=== PATIENT | female | born 1950 | race Caucasian/White ===

== ENCOUNTER 2020-09-02 16:38 | Emergency (ER) | payer OTHER, MEDICARE ==
[~2020-09-02] VITALS: Ht 157.5 cm; Wt 77.1 kg
[~2020-09-02 16:38] MED LIST: ALBU90OI INH; ALBU90OI61 INH; ASPI325 PO; ATEN50 PO; ATOR10 PO; BACL10 PO; CETI5 PO; CLOB.05TC TOP; CLON1 PO; CYAN1000I IM; DULOXETINE HCL30 MG PO; ENOX40I SC; FLUO.05TO TOP; FOLI1 PO; GLIP5 PO; Gengraf25 MG PO; HYDACE10B PO; HYDCHL12.5 PO; HYDCHL25 PO; HYDR1TAB94 PO; INS70/30PN SC; INSUASPI SC; INSULANPEN SC; LEVSOD175 PO; LISHYD2012 PO; LISI5 PO; LORA1; Lantus100 UNIT/1 SC; METF500C; METF850 PO; METTREX2.5 PO; MORP15ER PO; NAPR250 PO; ONDA4ODT SL; OXYACE5T PO; OXYC5 PO; PARO20; PARO30; PARO30 PO; QUET200; SIMV10 PO; SUMA25 PO; Synthroid125 MCG PO; TACR1 TOP; TRIA80TC TOP
[2020-09-02] MEDS ORDERED: HYDR1TAB94 PO (18:24)
[2020-09-02] MEDS ORDERED: Voltaren100 GM TOP (18:24)
== END 2020-09-02 18:58 | disposition home or self-care (01) ==
LOC: ER 16:38
DX: M25.511 Pain in right shoulder (principal); I10 Essential (primary) hypertension; J44.9 Chronic obstructive pulmonary disease, unspecified; F17.210 Nicotine dependence, cigarettes, uncomplicated; Z79.4 Long term (current) use of insulin; Z79.899 Other long term (current) drug therapy; Z88.8 Allergy status to other drugs, medicaments and biological substances
CPT/HCPCS: 73030; 99283-25; A9270

== ENCOUNTER 2021-12-10 21:24 | Inpatient (IN) | payer OTHER ==
[~2021-12-10] VITALS: Ht 157.5 cm; Wt 85.0 kg
[~2021-12-10 21:24] MED LIST changes: +Voltaren100 GM TOP
[2021-12-10 22:26] LABS: BASOPHILS ABSOLUTE AUTO 0.04 K/mm3 (0.00-0.23); BASOPHILS PERCENT AUTO 0 % (0-2); EOSINOPHILS ABSOLUTE AUTO 0.04 K/mm3 (0.00-0.68); EOSINOPHILS PERCENT AUTO 0 % (0-6); Hematocrit 39.7 % (33.0-51.0); Hemoglobin 13.6 g/dL (11.5-16.0); IMMATURE GRAN PERCENT AUTO 1 % (0-1); LYMPHOCYTES ABSOLUTE AUTO 1.23 K/mm3 (0.84-5.20); LYMPHOCYTES PERCENT AUTO 8 % (21-46); MONOCYTES ABSOLUTE AUTO 1.11 K/mm3 (0.16-1.47); MONOCYTES PERCENT AUTO 7 % (4-13); Mean Corpuscular HGB 31.3 pg (26.0-34.0); Mean Corpuscular HGB Conc 34.3 g/dL (31.5-36.5); Mean Corpuscular Volume 92 fL (80-100); Mean Platelet Volume 9.8 fL (9.1-12.4); NEUTROPHILS ABSOLUTE AUTO 12.95 K/mm3 (1.96-9.15); NEUTROPHILS PERCENT AUTO 84 % (41-73); Platelet Count 146 K/mm3 (150-400); RDW Coefficient Variation 12.2 % (11.7-14.2); RDW Standard Deviation 41.4 fL (35.1-46.3); Red Blood Cell Count 4.34 M/mm3 (3.80-5.20); White Blood Cell Count 15.47 K/mm3 (4.00-11.30)
[2021-12-10 22:34] LABS: Source, Urine Voided
[2021-12-10 22:37] LABS: Appearance, Urine Cloudy (Clear); Bilirubin, Urine Neg (Neg); Blood, Urine 4+ (Neg); Glucose Qualitative, Urine 4+ (Neg); Ketones, Urine 1+ (Neg); Leukocyte Esterase, Urine 2+ (Neg); Nitrite, Urine Neg (Neg); Protein, Urine 3+ (Neg); Urobilinogen, Urine NORM (Normal); pH, Urine 6.5 (5.0-8.0)
[2021-12-10 22:44] LABS: Color, Urine Pale Yellow (P-Yellow)
[2021-12-10 22:45] LABS: Albumin/Globulin Ratio 0.5 (0.8-1.8); Creatinine, Blood 1.04 mg/dL (0.40-1.00); Globulin, Blood 4.4 g/dL (2.2-4.0); Potassium, Blood 4.1 mmol/L (3.5-5.5); Total Protein, Blood 6.4 g/dL (6.4-8.2)
[2021-12-10 22:47] LABS: Bacteria Many /hpf; Squamous Epithelial Cells Many /hpf (Few); White Blood Cells, Urine 25-50 /hpf (0-5); Yeast/Fungi Urine Rare /hpf
[2021-12-11 05:54] LABS: BASOPHILS ABSOLUTE AUTO 0.03 K/mm3 (0.00-0.23); BASOPHILS PERCENT AUTO 0 % (0-2); EOSINOPHILS ABSOLUTE AUTO 0.01 K/mm3 (0.00-0.68); EOSINOPHILS PERCENT AUTO 0 % (0-6); Hematocrit 36.8 % (33.0-51.0); Hemoglobin 12.6 g/dL (11.5-16.0); IMMATURE GRAN ABSOLUTE AUTO 0.04 K/mm3 (0.00-0.10); IMMATURE GRAN PERCENT AUTO 0 % (0-1); LYMPHOCYTES ABSOLUTE AUTO 0.71 K/mm3 (0.84-5.20); LYMPHOCYTES PERCENT AUTO 6 % (21-46); MONOCYTES ABSOLUTE AUTO 0.87 K/mm3 (0.16-1.47); MONOCYTES PERCENT AUTO 8 % (4-13); Mean Corpuscular HGB 31.7 pg (26.0-34.0); Mean Corpuscular HGB Conc 34.2 g/dL (31.5-36.5); Mean Corpuscular Volume 93 fL (80-100); Mean Platelet Volume 9.9 fL (9.1-12.4); NEUTROPHILS ABSOLUTE AUTO 9.71 K/mm3 (1.96-9.15); NEUTROPHILS PERCENT AUTO 85 % (41-73); Platelet Count 127 K/mm3 (150-400); RDW Coefficient Variation 12.4 % (11.7-14.2); RDW Standard Deviation 42.5 fL (35.1-46.3); Red Blood Cell Count 3.97 M/mm3 (3.80-5.20); White Blood Cell Count 11.37 K/mm3 (4.00-11.30)
[2021-12-11 06:15] LABS: Albumin, Blood 1.7 g/dL (3.4-5.0); Albumin/Globulin Ratio 0.4 (0.8-1.8); Bilirubin, Total 0.6 mg/dL (0.1-1.0); Bun/Creatinine Ratio 27.6 (12.0-20.0); Creatinine, Blood 1.05 mg/dL (0.40-1.00); Globulin, Blood 3.8 g/dL (2.2-4.0); Total Protein, Blood 5.5 g/dL (6.4-8.2)
[2021-12-11 09:17] LABS: Glucose, Blood 660 mg/dL (70-99)
[2021-12-11 12:19] LABS: Glucose, Blood 519 mg/dL (70-99)
--- NOTE | 2021-12-11 17:25 | NUR ---
SHIFT SUMMARY PATIENT IS ALERT AND ORIENTED X4. PATIENT IS IND IN ROOM. PATIENT WAS ON 2L OXYGEN WHEN ARRIVAL FROM ED. PATIENT IS ON ROOM AIR NOW SATTING 96 PERCENT. PATIENT HAS HAD NO ACUTE EVENTS THIS SHIFT. VITAL SIGNS REVIEWED. BED IN LOCKED AND LOWEST POSITION. CALL LIGHT IN PLACE. WILL MONITOR UNTIL SHIFT CHANGE.
[2021-12-11 18:11] LABS: Hematocrit 40.4 % (33.0-51.0); Hemoglobin 13.7 g/dL (11.5-16.0); Mean Corpuscular HGB 31.5 pg (26.0-34.0); Mean Corpuscular HGB Conc 33.9 g/dL (31.5-36.5); Mean Corpuscular Volume 93 fL (80-100); Platelet Count 121 K/mm3 (150-400); RDW Coefficient Variation 12.4 % (11.7-14.2); RDW Standard Deviation 42.7 fL (35.1-46.3); Red Blood Cell Count 4.35 M/mm3 (3.80-5.20); White Blood Cell Count 10.82 K/mm3 (4.00-11.30)
--- NOTE | 2021-12-11 19:22 | NUR ---
RECEIVED BEDSIDE REPORT. A/O. ON RA. RESP EVEN. DAYSHIFT RN BROUGHT PT A WARM BLANKET. ER ADMIT TODAY. WILL CONTINUE TO PROVIDE CARE T/O SHIFT. CALL LT IN REACH.
--- NOTE | 2021-12-11 21:11 | NUR ---
FWW GIVEN TO PT AFTER NOTICING PT WAS WOBBLY DURING AMBULATION. PT STATES SHE JUST WOKE UP. AFTER USING THE BATHROOM, PT USED WALKER TO BED. CALL LT IN REACH.
--- NOTE | 2021-12-11 23:05 | NUR ---
MEDICATED PT FOR ALL OVER BODY PAIN. WILL REEVALUATE. BSC PLACED NEAR PT FOR EASE OF GETTING UP FREQUENTLY TO USE THE BATHROOM. TISSUES AND HAND VISCOSITY WORKER GIVEN TO PT. CALL LT IN REACH.
--- NOTE | 2021-12-11 23:48 | NUR ---
PT STATES FULL RELIEF OF PAIN IN HER HEAD, NECK, AND LOWER BACK. NO OTHER NEEDS. CALL LT IN REACH.
--- NOTE | 2021-12-12 02:00 | NUR ---
PT RESTING QUIETLY. CALL LT IN REACH.
[2021-12-12 05:14] LABS: Albumin, Blood 1.6 g/dL (3.4-5.0); Anion Gap 9 mmol/L (6-16); Blood Urea Nitrogen 23 mg/dL (8-24); Bun/Creatinine Ratio 27.3 (12.0-20.0); CO2, Blood 23 mmol/L (21-32); Calcium, Blood 7.3 mg/dL (8.5-10.1); Chloride, Blood 104 mmol/L (98-108); Creatinine, Blood 0.84 mg/dL (0.40-1.00); Glomerular Filtration Rate 75 (60-); Glucose, Blood 263 mg/dL (70-99); Phosphorus, Blood 2.1 mg/dL (2.5-4.9); Potassium, Blood 3.9 mmol/L (3.5-5.5); Sodium, Blood 136 mmol/L (136-145)
--- NOTE | 2021-12-12 05:41 | NUR ---
SHIFT SUMMARY: A/O. INDEP WITH WALKER TO BR. SEVERAL UNMEASURED VOIDS DURING SHIFT. ON RA. NSR AT 86 ON TELE. NO COMPLAINTS OF NAUSEA. MEDICATED WITH TYLENOL FOR HEADACHE AND GENERALIZED PAIN WITH NO RESULTS. 5MG OXYCODONE GIVEN AND PT REPORTED THIS IS THE FIRST TIME IN A WHILE SHE'S PAIN FREE. PT RESTED WELL AFTERWARDS. BLOOD SUGAR 286, 1 UNIT SHORT ACTING INSULIN GIVEN. NO ACUTE CHANGES. WILL CONTINUE TO PROVIDE CARE UNTIL SHIFT REPORT.
--- NOTE | 2021-12-12 16:46 | NUR ---
SHIFT SUMMARY PATIENT IS ALERT AND ORIENTED X4. PATIENT HAS HAD NO ACUTE EVENTS THIS SHIFT. TELE WAS REMOVED. VITAL SIGNS REVIEWED. PATIENT HAS BEEN MEDICATED FOR PAIN TWICE THIS SHIFT. PATIENT IS IND IN ROOM. PATIENT HAS NOT COMPLAINED OF NAUSEA, SOB OR VOMITTING THIS SHIFT. BED IN LOCKED AND LOWEST POSITION. CALL LIGHT IN PLACE. WILL MONITOR UNTIL SHIFT CHANGE.
--- NOTE | 2021-12-13 04:27 | NUR ---
SHIFT SUMMARY: PT IS A/OX4. SHE USES THE CALL BUTTON FOR NEEDS. PT BELIEVES SHE IS PASSING KIDNEY STONES. URINE WAS EVALUATED AND SOME SEDIMENT WAS NOTED. PATIENT DID TAKE A SHOWER THIS NOC SHIFT. SHE IS INDEPENDENT IN THE ROOM. WE'LL CONTINUE TO MONITOR.
[2021-12-13] MEDS ORDERED: CEPH500 PO (13:03)
[2021-12-13] MEDS ORDERED: ALBU90OI INH (13:06)
[2021-12-13] MEDS ORDERED: VISBIOME 112.51 EACH PO (13:16)
[2021-12-13] MEDS ORDERED: OXYC5 PO (13:18)
--- NOTE | 2021-12-13 15:22 | NUR ---
SHIFT SUMMARY PATIENT IS ALERT AND ORIENTED X4. PATIENT HAS BEEN IND IN ROOM. IV REMOVED WNL. PATIENT HAS HAD NO ACUTE EVENTS THIS SHIFT. VITAL SIGNS REVIEWED. PATIENT HAS NOT COMPLAINED OF ANY SOB, NAUSEA, VOMITTING OR SOB THIS SHIFT. PATIENT WAS READ DISCHARGE INSTRUCTIONS. PATIENTS MEDICATIONS WERE FAXED TO [facility]. PATIENT WAS DISCHARGED HOME BY SON.
== END 2021-12-13 15:43 | disposition home or self-care (01) | DRG 872 ==
LOC: ER 21:24 → MEDS 23:49 → ERHOLD 23:49 → MEDS 12-11 11:15
PROVIDERS: Internal Medicine; Student in an Organized Health Care Education/Training Program; ADMIT Internal Medicine
DX: A41.51 Sepsis due to Escherichia coli [E. coli] (principal); N39.0 Urinary tract infection, site not specified; G89.29 Other chronic pain; N18.2 Chronic kidney disease, stage 2 (mild); E11.65 Type 2 diabetes mellitus with hyperglycemia; I12.9 Hypertensive chronic kidney disease with stage 1 through stage 4 chronic kidney disease, or unspecified chronic kidney disease; F17.210 Nicotine dependence, cigarettes, uncomplicated; E11.42 Type 2 diabetes mellitus with diabetic polyneuropathy; L40.9 Psoriasis, unspecified; F43.10 Post-traumatic stress disorder, unspecified; Z98.890 Other specified postprocedural states; Z88.8 Allergy status to other drugs, medicaments and biological substances; Z79.4 Long term (current) use of insulin; Z79.899 Other long term (current) drug therapy
CPT/HCPCS: 36415; 71045; 74176; 80053; 80069; 81001; 82947; 83605; 83690; 85025; 85027; 87040; 87077; 87186; 93005; 93010; 94640; 94664; 94760; 96372; 96374; 96375; 99285-25; A9270; J0456; J0696; J1650; J1815; J1885; J7030; J7050

== ENCOUNTER 2022-07-30 11:58 | Emergency (ER) | payer OTHER ==
[~2022-07-30] VITALS: Ht 157.5 cm; Wt 83.9 kg
[~2022-07-30 11:58] MED LIST changes: +CEPH500 PO; +METF500 PO; +VISBIOME 112.51 EACH PO
[2022-07-30 12:32] LABS: BASOPHILS ABSOLUTE AUTO 0.05 K/mm3 (0.00-0.23); BASOPHILS PERCENT AUTO 1 % (0-2); EOSINOPHILS ABSOLUTE AUTO 0.17 K/mm3 (0.00-0.68); EOSINOPHILS PERCENT AUTO 2 % (0-6); Hemoglobin 16.4 g/dL (11.5-16.0); IMMATURE GRAN ABSOLUTE AUTO 0.04 K/mm3 (0.00-0.10); IMMATURE GRAN PERCENT AUTO 0 % (0-1); LYMPHOCYTES ABSOLUTE AUTO 3.81 K/mm3 (0.84-5.20); LYMPHOCYTES PERCENT AUTO 37 % (21-46); MONOCYTES ABSOLUTE AUTO 0.51 K/mm3 (0.16-1.47); MONOCYTES PERCENT AUTO 5 % (4-13); Mean Corpuscular HGB 31.2 pg (26.0-34.0); Mean Corpuscular HGB Conc 34.2 g/dL (31.5-36.5); Mean Corpuscular Volume 91 fL (80-100); Mean Platelet Volume 9.7 fL (9.1-12.4); NEUTROPHILS ABSOLUTE AUTO 5.63 K/mm3 (1.96-9.15); NEUTROPHILS PERCENT AUTO 55 % (41-73); Platelet Count 210 K/mm3 (150-400); RDW Coefficient Variation 12.9 % (11.7-14.2); RDW Standard Deviation 43.3 fL (35.1-46.3); Red Blood Cell Count 5.26 M/mm3 (3.80-5.20); White Blood Cell Count 10.21 K/mm3 (4.00-11.30)
[2022-07-30 12:47] LABS: Albumin, Blood 3.4 g/dL (3.4-5.0); Albumin/Globulin Ratio 0.9 (0.8-1.8); Bilirubin, Total 0.5 mg/dL (0.1-1.0); Bun/Creatinine Ratio 22.7 (12.0-20.0); Creatinine, Blood 0.79 mg/dL (0.40-1.00); Globulin, Blood 3.6 g/dL (2.2-4.0); Potassium, Blood 3.4 mmol/L (3.5-5.5)
== END 2022-07-30 15:36 | disposition left against medical advice (07) ==
LOC: ER 11:58
PROVIDERS: Student in an Organized Health Care Education/Training Program
DX: R10.32 Left lower quadrant pain (principal); Z88.1 Allergy status to other antibiotic agents; Z91.048 Other nonmedicinal substance allergy status; Z79.899 Other long term (current) drug therapy; Z79.84 Long term (current) use of oral hypoglycemic drugs; Z79.4 Long term (current) use of insulin; F43.10 Post-traumatic stress disorder, unspecified; E11.42 Type 2 diabetes mellitus with diabetic polyneuropathy; I10 Essential (primary) hypertension; F17.210 Nicotine dependence, cigarettes, uncomplicated
CPT/HCPCS: 36415; 80053; 83690; 85025

== ENCOUNTER 2024-12-05 11:48 | Emergency (ER) | payer OTHER ==
[~2024-12-05] VITALS: Ht 157.5 cm; Wt 74.0 kg
[~2024-12-05 11:48] MED LIST changes: +CELE100 PO; +INSULANI SC; +JARDIANCE25 MG PO; +LEVSOD150 PO; +MELO7.5 PO; +NOVOLIN R100 UNIT/2; +STIOLTO RESPIMAT4 G1 INH
[2024-12-05 11:51] VITALS: BP 128/69
[2024-12-05 12:12] LABS: BASOPHILS ABSOLUTE AUTO 0.05 K/mm3 (0.00-0.23); BASOPHILS PERCENT AUTO 0 % (0-2); EOSINOPHILS ABSOLUTE AUTO 0.22 K/mm3 (0.00-0.68); EOSINOPHILS PERCENT AUTO 2 % (0-6); Hematocrit 49.6 % (33.0-51.0); Hemoglobin 16.9 g/dL (11.5-16.0); IMMATURE GRAN ABSOLUTE AUTO 0.05 K/mm3 (0.00-0.10); IMMATURE GRAN PERCENT AUTO 0 % (0-1); LYMPHOCYTES ABSOLUTE AUTO 1.88 K/mm3 (0.84-5.20); LYMPHOCYTES PERCENT AUTO 13 % (21-46); MONOCYTES ABSOLUTE AUTO 1.20 K/mm3 (0.16-1.47); MONOCYTES PERCENT AUTO 9 % (4-13); Mean Corpuscular HGB Conc 34.1 g/dL (31.5-36.5); Mean Corpuscular Volume 91 fL (80-100); NEUTROPHILS ABSOLUTE AUTO 10.70 K/mm3 (1.96-9.15); NEUTROPHILS PERCENT AUTO 76 % (41-73); NRBC ABSOLUTE 0.00 K/mm3 (0.00-0.02); NRBC Auto 0.0 /100 WBC (0.0-0.2); Platelet Count 219 K/mm3 (150-400); RDW Coefficient Variation 12.6 % (11.7-14.2); RDW Standard Deviation 42.1 fL (35.1-46.3)
[2024-12-05 13:21] LABS: Alanine Aminotransfer (ALT/SGP 14.0 U/L (12-78); Albumin, Blood 3.2 g/dL (3.4-5.0); Albumin/Globulin Ratio 0.8 (0.8-1.8); Anion Gap 7.0 mmol/L (3-11); Aspartate Aminotrans (AST/SGOT 7.0 U/L (12-37); Bilirubin, Total 1.4 mg/dL (0.1-1.0); Blood Urea Nitrogen 13.0 mg/dL (8-24); CO2, Blood 32.0 mmol/L (21-32); Calcium, Blood 8.9 mg/dL (8.5-10.1); Chloride, Blood 103.0 mmol/L (98-108); Creatinine, Blood 0.89 mg/dL (0.40-1.00); Globulin, Blood 3.9 g/dL (2.2-4.0); Glucose, Blood 153.0 mg/dL (70-99); Potassium, Blood 3.3 mmol/L (3.5-5.5); Sodium, Blood 139.0 mmol/L (136-145); Total Protein, Blood 7.1 g/dL (6.4-8.2)
== END 2024-12-05 13:43 | disposition left against medical advice (07) ==
LOC: ER 11:48
PROVIDERS: Physician Assistant
DX: K61.1 Rectal abscess (principal); Z53.21 Procedure and treatment not carried out due to patient leaving prior to being seen by health care provider
CPT/HCPCS: 80053; 85025; 99283

== ENCOUNTER 2024-12-06 08:13 | Inpatient (IN) | payer OTHER ==
[~2024-12-06] VITALS: Ht 157.5 cm; Wt 79.6 kg
[2024-12-06] MEDS ORDERED: Ketorolac Tromethamine 15mg Vial IV ONE (09:00)
[2024-12-06 09:36] LABS: BASOPHILS ABSOLUTE AUTO 0.07 K/mm3 (0.00-0.23); BASOPHILS PERCENT AUTO 1 % (0-2); EOSINOPHILS ABSOLUTE AUTO 0.24 K/mm3 (0.00-0.68); EOSINOPHILS PERCENT AUTO 2 % (0-6); Hematocrit 50.2 % (33.0-51.0); Hemoglobin 17.2 g/dL (11.5-16.0); IMMATURE GRAN ABSOLUTE AUTO 0.04 K/mm3 (0.00-0.10); IMMATURE GRAN PERCENT AUTO 0 % (0-1); LYMPHOCYTES ABSOLUTE AUTO 1.76 K/mm3 (0.84-5.20); LYMPHOCYTES PERCENT AUTO 13 % (21-46); MONOCYTES ABSOLUTE AUTO 0.90 K/mm3 (0.16-1.47); MONOCYTES PERCENT AUTO 7 % (4-13); Mean Corpuscular HGB Conc 34.3 g/dL (31.5-36.5); Mean Corpuscular Volume 91 fL (80-100); NEUTROPHILS ABSOLUTE AUTO 10.71 K/mm3 (1.96-9.15); NEUTROPHILS PERCENT AUTO 78 % (41-73); NRBC ABSOLUTE 0.00 K/mm3 (0.00-0.02); NRBC Auto 0.0 /100 WBC (0.0-0.2); Platelet Count 247 K/mm3 (150-400); RDW Coefficient Variation 12.7 % (11.7-14.2); RDW Standard Deviation 42.3 fL (35.1-46.3)
[2024-12-06 09:59] LABS: Alanine Aminotransfer (ALT/SGP 15.0 U/L (12-78); Albumin, Blood 3.0 g/dL (3.4-5.0); Albumin/Globulin Ratio 0.7 (0.8-1.8); Anion Gap 7.0 mmol/L (3-11); Aspartate Aminotrans (AST/SGOT 15.0 U/L (12-37); Bilirubin, Total 1.5 mg/dL (0.1-1.0); Blood Urea Nitrogen 17.0 mg/dL (8-24); CO2, Blood 29.0 mmol/L (21-32); Calcium, Blood 8.7 mg/dL (8.5-10.1); Chloride, Blood 101.0 mmol/L (98-108); Creatinine, Blood 0.78 mg/dL (0.40-1.00); Globulin, Blood 4.2 g/dL (2.2-4.0); Glucose, Blood 478.0 mg/dL (70-99); Potassium, Blood 3.7 mmol/L (3.5-5.5); Sodium, Blood 133.0 mmol/L (136-145); Total Protein, Blood 7.2 g/dL (6.4-8.2)
[2024-12-06] MEDS ORDERED: OxyCODONE 5 mg/Acetamin 325 mg TABLET PO ONE (10:00)
[2024-12-06] MEDS ORDERED: Ampicillin Sod/Sulbactam Sod 3 GM in NS 100 ML IV ONE (10:00)
[2024-12-06] MEDS ORDERED: NS 1,000 ML IV SCH (10:20)
[2024-12-06] MEDS ORDERED: Insulin Regular 100 Unit/ML 1ML Dose IV ONE (10:20)
[2024-12-06] MEDS ORDERED: FentaNYL Citrate 50 MCG/ML 2 ML Injection IV PRN (13:10)
[2024-12-06] MEDS ORDERED: Ondansetron HCl 2 MG / ML 2ML Vial IV PRN (13:10)
[2024-12-06] MEDS ORDERED: HYDROcodone 5-APAP 325 TAB PO PRN (13:10)
[2024-12-06] MEDS ORDERED: Insulin Human Lispro 100 Units/ML 3ML Syringe SC SCH (16:30)
--- NOTE | 2024-12-06 17:15 | NUR ---
PT TRANSFERED FROM ER TO ROOM 343.
[2024-12-06 17:18] VITALS: BP 111/82
[2024-12-06] MEDS ORDERED: Ampicillin Sod/Sulbactam Sod 3 GM in NS 100 ML IV SCH (18:00)
--- NOTE | 2024-12-06 19:11 | NUR ---
SHIFT SUMMARY PT IS A/OX4. UP WITH SBA. RECIEVING IV ANTIBIOTICS. PT IS PLEASANT AND COOPERTATIVE WITH CARE.
[2024-12-06 19:15] VITALS: BP 134/74
[2024-12-06] MEDS ORDERED: NS 250 ML IV PRN (19:25)
[2024-12-06] MEDS ORDERED: Lactobacil 2-S.Thermo-Bifido 1 1 Cap PO SCH (21:00)
[2024-12-06] MEDS ORDERED: Insulin Glargine-Yfgn 100 Unit/mL 3 ML SYR SC SCH (21:00)
[2024-12-07 02:48] VITALS: BP 139/67
--- NOTE | 2024-12-07 04:48 | NUR ---
SHIFT SUMMARY PATIENT IS ALERT AND ORIENTED. PATIENT HAS HAD NO ACUTE EVENTS THIS SHIFT. VITAL SIGNS REVIEWED. PATIENT HAS BEEN IND IN ROOM. IV ABX INFUSED ORDERED. PATIENT HAS REPORTED PAIN THIS SHIFT AND MEDICATED PER EMAR. PATIENT HAS HAD NO COMPLAINTS OF SOB, NAUSEA, OR VOMITTING THIS SHIFT. BED IN LOCKED AND LOWEST POSITION. CALL LIGHT IN PLACE.
[2024-12-07 08:01] VITALS: BP 131/68
[2024-12-07] MEDS ORDERED: Enoxaparin 40 MG/0.4 ML SYR SC SCH (09:00)
[2024-12-07 15:58] VITALS: BP 151/71
--- NOTE | 2024-12-07 16:41 | NUR ---
SHIFT SUMMARY PT AOX4, COOPERATIVE, ABLE TO MAKE NEEDS KNOWN. PT IS IND IN ROOM. ON ROOM AIR. PT TO HAVE I&D TOMORROW FOR PERIRECTAL ABSCESS, NPO AND MIDNIGHT, PT IS AWARE OF THIS. TOLERATING PO AND IV MEDICATION. BED IN LOWEST POSITION, CALL LIGHT WITHIN REACH.
[2024-12-07 19:30] VITALS: BP 157/81
[2024-12-08] VITALS (11 sets, daily range): BP systolic 129–150; BP diastolic 61–79
--- NOTE | 2024-12-08 05:09 | NUR ---
SHIFT SUMMARY PT ADMITTED FOR SEPSIS/PERIRECTAL ABCESS. A&OX4. ABLE TO MAKE ALL NEEDS KNOWN. NPO SINCE MIDNIGHT PER ORDERS. UNASYN ADMINISTERED PER ORDERS. PLAN FOR I&D 12/08/24 PER REPORT. PT RESTING PEACEFULLY IN BED AT LOWEST POSITION WITH RAILS X 2 AND CALL LIGHT WITHIN REACH.
[2024-12-08] MEDS ORDERED: Levothyroxine Sodium 0.15 MG Tab PO SCH (06:00)
[2024-12-08] MEDS ORDERED: Bupivacaine 0.5% HCl 5 MG/ML 30MLVIAL ONE (08:18)
[2024-12-08] MEDS ORDERED: Dexamethasone Sod Phos 10 MG/ML 1ML VIAL ONE (08:32)
[2024-12-08] MEDS ORDERED: Ondansetron HCl 2 MG / ML 2ML Vial ONE (08:32)
[2024-12-08] MEDS ORDERED: FentaNYL Citrate 50 MCG/ML 2 ML Injection ONE (08:32)
--- NOTE | 2024-12-08 08:37 | NUR ---
History, Chart, Medications and Allergies reviewed before start of procedure. Pre-Op teaching done. Pt verbalizes understanding. Patient confirms NPO status and agrees with scheduled surgery. PT LEFT DENTURES IN MED FLOOR ROOM. PT DELAY TIME TO ROLL BACK TO OR WAS D/T WAITING ON PROFESSOR OF PRACTICE TO COME GET PT. PT WAS READY FOR SURGERY IN PRE OP AT 0752.
[2024-12-08] MEDS ORDERED: Ondansetron HCl 2 MG / ML 2ML Vial IV PRN (08:40)
[2024-12-08] MEDS ORDERED: Albuterol 2.5 MG/3 ML VIAL INH PRN (08:40)
[2024-12-08] MEDS ORDERED: HYDROmorphone HCl/Pf 1MG SYR IV PRN (08:40)
[2024-12-08] MEDS ORDERED: FentaNYL Citrate 50 MCG/ML 2 ML Injection IV PRN (08:40)
[2024-12-08] MEDS ORDERED: Ketorolac Tromethamine 30mg Vial ONE (08:54)
--- NOTE | 2024-12-08 19:50 | NUR ---
SHIFT SUMMARY CLIENT IS AOX4. MEDICATION COMPLIANT. HAD I&D TODAY. COMPLAINED OF POST OP PAIN AND WAS MEDICATED PER EMAR. CLIENT ACCIDENTLY PULLED IV OUT WHILE SLEEPING. BED IS IN LOW POSITION AND CALLLIGHT IS WITHIN REACH.
--- NOTE | 2024-12-09 04:32 | NUR ---
SHIFT SUMMARY PT ADMITTED FOR SEVERE SEPSIS DUE TO PERIRECTAL ABCESS. I&D PERFORMED YESTERDAY. WOUND SITE IS CLEAN. MEPILEX SOILED AT START OF SHIFT AND SITE CLEANSED WITH WOUND CLEANSER AND AN ABD PAD APPLIED. PT HAS HAD PAIN THROUGHOUT SHIFT IN INCISION AREA AND MEDICATED PER EMAR WITH GOOD PAIN MANAGEMENT PER PT. SHE IS A&OX4 AND ABLE TO MAKE ALL NEEDS KNOWN. THE PTS IV WAS REMOVED ACCIDENTALLY JUST PRIOR TO SHIFT. NEW POWERGLIDE INSERTED IN [place]. IV ABX WERE LATE DUE TO LACK OF IV ACCESS AND IV ABX ADJUSTED PER PHARMACY. PT ABLE TO REST THROUGHOUT SHIFT IN BED AT LOWEST POSITION WITH RAILS X2 AND CALL LIGHT WITHIN REACH.
[2024-12-09 05:29] VITALS: BP 125/62
[2024-12-09 07:39] VITALS: BP 154/83
[2024-12-09] MEDS ORDERED: Norco 5-325 Ta1 EACH PO (15:38)
[2024-12-09] MEDS ORDERED: AMOCLA875 PO (15:42)
[2024-12-09] MEDS ORDERED: FT SENNA-S 8.61 EACH PO (15:44)
--- NOTE | 2024-12-09 19:55 | NUR ---
DISCHARGE SUMMARY CLIENT AOX4. MEDICATIONS COMPLIANT. CONTINUES IV ABT. DRESSING CHANGED. DRAINAGE IS LESS THAN YESTERDAY. DISCHARGE ORDERS RECEIVED. HARD COPY RX FOR NORCO GIVEN TO CLIENT. MED LIST FA[facility]ED TO [facility]. DISCHARGE PACKET GIVEN AND EXPLAINED TO CLIENT. CLIENT OF UNIT VIA WHEELCHAIR ESCORTED BY SON
== END 2024-12-09 16:15 | disposition home or self-care (01) | DRG 854 ==
LOC: ER 08:13 → MEDS 13:05
PROVIDERS: Physician Assistant; Surgery; ADMIT Internal Medicine
PROC: 3E03329 Introduction of Other Anti-infective into Peripheral Vein, Percutaneous Approach (ICD-10-PCS; 2024-12-06)
PROC: 0DBQ0ZZ Excision of Anus, Open Approach (ICD-10-PCS; 2024-12-08)
PROC: 0D9Q0ZZ Drainage of Anus, Open Approach (ICD-10-PCS; principal; 2024-12-08 08:00)
DX: A41.9 Sepsis, unspecified organism (principal); K61.0 Anal abscess; E11.65 Type 2 diabetes mellitus with hyperglycemia; K62.89 Other specified diseases of anus and rectum; F43.10 Post-traumatic stress disorder, unspecified; J44.9 Chronic obstructive pulmonary disease, unspecified; E11.42 Type 2 diabetes mellitus with diabetic polyneuropathy; L40.9 Psoriasis, unspecified; I10 Essential (primary) hypertension; Z96.612 Presence of left artificial shoulder joint; F17.200 Nicotine dependence, unspecified, uncomplicated; R65.20 Severe sepsis without septic shock; G89.29 Other chronic pain; Z79.890 Hormone replacement therapy; Z79.4 Long term (current) use of insulin; Z79.2 Long term (current) use of antibiotics; Z88.8 Allergy status to other drugs, medicaments and biological substances; Z79.51 Long term (current) use of inhaled steroids; Z79.85 Long-term (current) use of injectable non-insulin antidiabetic drugs; Z79.899 Other long term (current) drug therapy; Z79.84 Long term (current) use of oral hypoglycemic drugs
CPT/HCPCS: 80053; 82947; 83605; 85025; 87040; 93005; 93010; 94760; 96365; 99285-25; A9270; C1751; J0295; J1100; J1650; J1815; J1885; J2405; J2704; J3010; J7030; J7050; J7120